=== PATIENT | female | born 1965 | race Caucasian/White ===

== ENCOUNTER → 2021-04-25 00:21 | Outpatient (CLI) | payer OTHER, SELFPAY ==
[2021-04-25 18:39] LABS: SARS-CoV-2 RNA PCR Negative
== END ==
PROVIDERS: Visit Provider Surgery Plastic and Reconstructive Surgery
DX: Z01.812 Encounter for preprocedural laboratory examination (principal); Z20.822 Contact with and (suspected) exposure to COVID-19
CPT/HCPCS: C9803; U0003; U0005

== ENCOUNTER 2021-04-28 01:28 | Day surgery (SDC) | payer OTHER, SELFPAY ==
[2021-04-20 15:11] VITALS: BMI 25.6
[2021-04-28] VITALS (10 sets, daily range): BP systolic 102–143; BP diastolic 57–89; PULSE 71–100; RESP 12–19; TEMP 37.1–37.2; O2SAT 97–100
--- NOTE | 2021-04-28 07:36 | WPDANESEPPF ---
Anes - Initial Pre Proc Eval Procedure: Operation Date: 04/28/21 09:30 Proposed Procedures p Bilateral Breast Implant Exchange - Shilo Ramos MD Date/Time: 04/28/21 07:36 Surgeon: Shilo Ramos MD Pre Op Diagnosis: breast implant rupture Patient Data Age: 55 Gender: F Height: 1.57 m Weight: 63.6 kg Allergies Allergy/AdvReac Type Severity Reaction Status Date / Time Sulfa (Sulfonamide Allergy Intermediate Hives Verified 04/28/21 07:34 Antibiotics) Home Medications Medication Instructions Recorded Confirmed Type coQ10 (ubiquinol) 100 mg capsule 100 mg PO BID 01/31/21 04/28/21 History lutein 20 mg tablet 20 mg PO DAILY 01/31/21 04/28/21 History progesterone micronized 200 mg 200 mg PO QHS 01/31/21 04/28/21 History capsule spironolactone 50 mg tablet 100 mg PO DAILY 01/31/21 04/28/21 History thyroid (pork) 60 mg tablet 60 mg PO DAILY 01/31/21 04/28/21 History Lactobac 40-Bifido 3-S.thermop 1 cap PO DAILY 04/20/21 04/28/21 History [Probiotic] carisoprodol 350 mg tablet 350 mg PO TID PRN #21 tablet 04/20/21 Rx docusate sodium 100 mg capsule 100 mg PO DAILY #14 cap 04/20/21 Rx lysine [L-Lysine] 500 mg PO DAILY 04/20/21 04/28/21 History ondansetron HCl 4 mg tablet 4 mg PO Q8H #21 tablet 04/20/21 Rx oxycodone-acetaminophen 5 mg-325 1 tablet PO Q6H PRN #15 tablet 04/20/21 Rx mg tablet vitamin D3-vitamin K2 1 cap PO DAILY 04/20/21 04/28/21 History Patient hx anesthesia problems: none Family hx anesthesia problems: none PMFSH Past Medical History Medical History (Updated 04/28/21 @ 07:36 by David Sinha DO) Hypothyroidism Surgical History Surgical History History of dilatation and curettage Family History Family History Father Diabetes mellitus Mother Hypertension Grandparent Carcinoma of colon Social History Social History Smoking status: Never smoker Alcohol intake: current Substance use: never Living arrangements: with family Spiritual care concerns: No Anes - Eval Final PreProcedure Day of Procedure 04/28/21 07:36 Patient weight: overweight Heart: regular rate and rhythm Lungs: clear to auscultation and normal air movement Airway: Mallampati scale class II Neurological: alert and oriented Last oral intake: >/= 8 hours ASA classification: II Emergent: no Anesthetic plan: proceed Anesthesia type and monitoring: general LMA and standard monitoring Informed Consent: The patient's anesthetic plan and its attendant risks and benefits were discussed with the patient/family/POA. Questions were solicited and answers provided to the satisfaction of the patient/family/POA.
[2021-04-28] MEDS: LACTATED RINGERS 1,000 ML 30 ML IV CONT ×2 (08:10→11:09)
--- NOTE | 2021-04-28 08:48 | WPDHPUPDATE1 ---
History and Physical Update Update Date/Time: 04/28/21 08:48 History and Physical has been reviewed, including an updated exam of the patient. There are NO changes in the patient's condition. Risks, benefits, and alternatives have been discussed and questions answered. Patient agrees to proceed with procedure.
--- NOTE | 2021-04-28 09:08 | P.OP_ITS ---
Procedure Note - Detailed Date of Procedure 04/28/21 Pre-op Diagnosis breast implant rupture Post-op Diagnosis same Procedure Performed Bilateral breast implant exchange Surgeon Shilo Ramos MD Anesthesia general Findings Old Implants Smooth silicone 225 cc implants Right -grossly ruptured Left - small rupture (slight extravesation) New Implants Bilateral Red Howard 260cc Silicone Implants Right - REF # [id number] SN [id number] Left - REF# [id number] SN [id number] Description of Procedure Preoperatively the risks, benefits, alternatives were discussed in extensive detail. I want her to be very realistic about the risks involved as well as expectations. She would like to replace her current implants in the same plane, changing to an IMF scar, same size or slightly larger. If implants are textured she would send the capsule to pathology at her expense. She declines if they are smooth understanding the risks involved. All questions were answered and consent obtained. Patient was taken to the operating room placed supine on the operating room table. Anesthesia provided by anesthesiology. We provided a field block with 1% lidocaine and 0.25% Marcaine with epinephrine. She was prepped and draped in a standard sterile fashion. Tegaderm nipple Owens were placed. Fifteen blade used to make incision along IMF. Dissection was continued down until the capsule is identified the majority of capsule was removed. I then copiously i rrigated bilateral with 3 L of saline solution on TUR tubing. I verified a strict hemostasis. Repair irrigation with 3 litters of saline with bacitracin bilateral. Irrigated the pocket copiously with antibiotic Betadine solution. Wash my gloves. Using a no-touch technique and a Valerio funnel the implant was introduced into the pocket. This was closed using 2-0 Vicryl followed by 3-0 Monocryl followed by running subcuticular 4-0 Monocryl and tissue glue. Fluffs and a surgical bra were placed. Patient was woken taken to the PACU without difficulty. All instrument sponge counts were correct at the end of the case. Estimated Blood Loss 30 Drains No Packing No Pathology none sent Complications No immediate complications Condition stable Disposition PACU
[2021-04-28] MEDS: ceFAZolin 2 GM/D5W 50 ML 2 GM/50 ML BAG IVPB (09:18)
--- NOTE | 2021-04-28 10:53 | SUR.OPER ---
BREAST IMPLANTS FROM SURGEON'S OFFICE: RIGHT BREAST IMPLANT: SSL 260CC NATRELLE INSPIRA SOFT TOUCH SMOOTH ROUND LOW PROFILE REF: [id number] EXP: 03-01-2023 SN: [id number] LEFT BREAST IMPLANT: SSL 260CC NATRELLE INSPIRA SOFT TOUCH SMOOTH ROUND LOW PROFILE REF: [id number] EXP: 10-27-2022 SN: [id number]
[2021-04-28] MEDS: oxyCODONE HCL (*CRX) 5 MG TAB IR PO (12:18)
== END 2021-04-28 12:43 | disposition home or self-care (01) ==
PROVIDERS: PCP Internal Medicine Geriatric Medicine; Visit Provider Surgery Plastic and Reconstructive Surgery
PROC: (CPT 19342; principal; 2021-04-28 09:30)
DX: T85.41XA Breakdown (mechanical) of breast prosthesis and implant, initial encounter (principal); Y83.8 Other surgical procedures as the cause of abnormal reaction of the patient, or of later complication, without mention of misadventure at the time of the procedure; E03.9 Hypothyroidism, unspecified; Z79.899 Other long term (current) drug therapy
CPT/HCPCS: 19371; 19325; A9270; J0690; J1100; J1580; J2250; J2405; J2704; J3010; J7120